=== PATIENT | female | born 1975 | race Caucasian/White ===

== ENCOUNTER 2021-03-25 09:22 | Emergency (ER) | payer MEDICAID, OTHER ==
[~2021-03-25] VITALS: Ht 172.7 cm; Wt 125.3 kg
[~2021-03-25 09:22] MED LIST: CITA40TA22 PO; HYDR-4383 PO; METO-384 PO; MIRA50TA PO; RANI300T7 PO
[2021-03-25 09:34] VITALS: BP 146/74
[2021-03-25] MEDS ORDERED: penicillin G benzathine 1.2 million unit/2ml syringe IM ONE (11:10)
--- NOTE | 2021-03-25 12:06 | NUR ---
Patient seen and assessed by provider.
--- NOTE | 2021-03-25 12:07 | NUR ---
Patient reported having had PCN before and stated she has not had any adverse effects of medication.
== END 2021-03-25 12:07 | disposition home or self-care (01) ==
LOC: ER 09:23
DX: J02.0 Streptococcal pharyngitis (principal); Z20.822 Contact with and (suspected) exposure to COVID-19; H92.01 Otalgia, right ear; G89.29 Other chronic pain; F32.9 Major depressive disorder, single episode, unspecified; Z87.442 Personal history of urinary calculi; Z98.51 Tubal ligation status; Z90.49 Acquired absence of other specified parts of digestive tract; Z98.890 Other specified postprocedural states; Z88.8 Allergy status to other drugs, medicaments and biological substances; Z79.899 Other long term (current) drug therapy
CPT/HCPCS: 71045; 87635; 87880; 96372; 99284; C9803; J0561

== ENCOUNTER 2023-09-07 15:49 | Emergency (ER) | payer SELFPAY ==
[~2023-09-07] VITALS: Ht 172.7 cm; Wt 127.0 kg
[~2023-09-07 15:49] MED LIST changes: +OXYC-150 PO
[2023-09-07 17:12] LABS: BASOPHILS # (AUTO) 0.1 X10'3 (0-0.2); BASOPHILS % (AUTO) 0.7 % (0-1); EOSINOPHILS # (AUTO) 0.2 X10'3 (0-0.9); EOSINOPHILS % (AUTO) 1.8 % (0-6); HEMOGLOBIN 13.7 g/dl (12.0-16.0); LYMPHOCYTES % (AUTO) 47.3 % (21-51); MEAN CORPUSCULAR HEMOGLOBIN 29.5 PG (27.0-31.0); MEAN CORPUSCULAR HGB CONC 33.5 g/dL (33.0-36.5); MEAN CORPUSCULAR VOLUME 88.2 FL (78-98); MEAN PLATELET VOLUME 7.7 FL (7.4-10.4); MONOCYTES # (AUTO) 0.5 X10'3 (0-0.9); MONOCYTES % (AUTO) 6.1 % (2-12); NEUTROPHILS # (AUTO) 3.7 X10'3 (1.8-7.7); NEUTROPHILS % (AUTO) 44.1 % (42-75); PLATELET COUNT 383 X10'3 (140-440); RED BLOOD COUNT 4.64 X10'6 (4.20-5.60); WHITE BLOOD COUNT 8.5 X10'3 (4.5-11.0)
[2023-09-07 17:37] LABS: ALANINE AMINOTRANSFERASE 51 U/L (12-78); ALBUMIN 3.7 G/DL (3.4-5.0); ALKALINE PHOSPHATASE 58 IU/L (46-116); ANION GAP 11 (8-16); ASPARTATE AMINO TRANSFERASE 21 U/L (10-37); BILIRUBIN,TOTAL 0.4 MG/DL (0.1-1.0); BLOOD UREA NITROGEN 14 MG/DL (7-18); BUN/CREATININE RATIO 17.3 (10.0-20.0); CALCIUM 8.9 MG/DL (8.5-10.1); CHLORIDE 104 MMOL/L (99-107); CREATININE 0.81 MG/DL (0.40-0.90); GLUCOSE 197 MG/DL (70-104); POTASSIUM 3.6 MMOL/L (3.5-5.1); SODIUM 140 MMOL/L (135-145); TOTAL CARBON DIOXIDE 24.8 MMOL/L (24-32); TOTAL PROTEIN 7.4 G/DL (6.4-8.2); eCRCL 88 ML/MIN; eGFR 76 ML/MIN
[2023-09-07 17:44] LABS: PRO BRAIN NATRIURETIC PEPTIDE < 30 PG/ML (0-125)
[2023-09-07] MEDS ORDERED: LIDOcaine Viscous 15ml cup MM ONE (19:50)
[2023-09-07] MEDS ORDERED: mag hydrox/Alum hydrox/simeth 30ml oral suspension PO ONE (19:50)
[2023-09-07 20:29] VITALS: BP 140/87; PULSE 58; RESP 18; TEMP 98; O2SAT 99
== END 2023-09-07 20:31 | disposition home or self-care (01) ==
LOC: ER 15:50
DX: I10 Essential (primary) hypertension (principal); R07.89 Other chest pain; G89.29 Other chronic pain; F32.9 Major depressive disorder, single episode, unspecified; Z87.442 Personal history of urinary calculi; Z90.49 Acquired absence of other specified parts of digestive tract; Z98.51 Tubal ligation status; Z98.890 Other specified postprocedural states; Z88.6 Allergy status to analgesic agent; Z79.899 Other long term (current) drug therapy
CPT/HCPCS: 36415; 71045; 80053; 83880; 84484; 85025; 93005; 99285